=== PATIENT | female | born 1950 | race Caucasian/White ===

== ENCOUNTER 2017-04-11 11:06 | Inpatient (IN) | payer BC, MEDICARE ==
[2017-04-04 14:23] LABS: BASOPHILS 0.7 %; BASOPHILS ABSOLUTE 0.09 10/3/uL (0.0-0.16); EOSINOPHILS 1.4 %; EOSINOPHILS ABSOLUTE 0.18 10/3/uL (0.0-0.53); HEMATOCRIT 40.1 % (36.0-48.0); HEMOGLOBIN 13.5 g/dL (12.0-16.0); IMMATURE GRANULOCYTES 0.2 %; IMMATURE GRANULOCYTES ABSOLUTE 0.03 10/3/uL (0.0-0.11); LYMPHOCYTES 23.7 %; LYMPHOCYTES ABSOLUTE 3.14 10/3/uL (0.67-4.30); MEAN CORPUS HGB CONC 33.7 g/dL (32.0-36.0); MEAN CORPUSCULAR VOLUME 92.2 fL (80-100); MEAN PLATELET VOLUME 10.6 fL (9.2-13.0); MONOCYTES 6.1 %; MONOCYTES ABSOLUTE 0.81 10/3/uL (0.21-1.20); NEUTROPHILS 67.9 %; NEUTROPHILS ABSOLUTE 8.99 10/3/uL (2.02-8.40); RBC DISTRIBUTION WIDTH 14.2 % (12.0-16.0); RED CELL COUNT 4.35 10/6/uL (4.0-5.6); WHITE BLOOD CELLS 13.2 10/3/uL (4.5-10.5)
[2017-04-04 14:24] LABS: MANUAL DIFF NO %; PLATELET COUNT 223 10/3/uL (150-400)
[2017-04-04 14:29] LABS: PROTIME (NOT ORD) 12.7 SEC (12.0-14.5)
[2017-04-04 14:36] LABS: ASCORBIC ACID (UR NOT ORDER) NEG (NEG); BILIRUBIN, URINE NEGATIVE (NEG); KETONE, URINE NEGATIVE (NEG); LEUKOCYTE ESTERASE(NOT OR NEG (NEG); WBC (NOT ORDERED) (RFLEX) 1 (0-5)
[2017-04-04 14:41] LABS: A/G RATIO 1.3 (0.7-1.9); ALBUMIN 3.9 G/DL (3.5-5.0); ALKALINE PHOSPHATASE 66 U/L (45-117); BUN (BLOOD UREA NITROGEN) 20 MG/DL (6-23); CALCIUM, SERUM 8.9 MG/DL (8.5-10.4); CHLORIDE, SERUM 108 MMOL/L (96-112); CO2 (CARBON DIOXIDE) 34 MMOL/L (24-34); GFR AFRICAN AMERICAN 105 ML/MIN (>=60); GFR NON AFRICAN AMERICAN 91 ML/MIN (>=60); GLUCOSE, SERUM 79 MG/DL (60-99); POTASSIUM, SERUM 4.2 MMOL/L (3.5-5.3); SGOT(AST) 20 U/L (5-40); SGPT(ALT) 32 U/L (5-65); SODIUM, SERUM 142 MMOL/L (135-148); TOTAL BILIRUBIN 0.2 MG/DL (0-1.2); TOTAL PROTEIN 6.9 G/DL (6.0-8.5)
--- NOTE | ~2017-04-11 | OP ---
Record Of Operation [facility] [address] [place]. [address] NAME: MITCHELL DE : 52 STATUS : ADM IN PAT#: [id number] AGE: 66 ADM/REG DATE : 04/11/17 MR#: [id number] REPORT SERV DATE: 04/11/17 DICTATED BY: TATE AGEE DATE: 04/11/17 REPORT STATUS : Draft TRANSCRIBED BY: LIZZETTE DATE: 04/11/17 DATE OF PROCEDURE: 04/11/2017 PREOPERATIVE DIAGNOSIS: Severe right hip degenerative joint disease. POSTOPERATIVE DIAGNOSIS: Severe right hip degenerative joint disease. PROCEDURE: Uncemented total hip arthroplasty, Tri-Lock. SIDE: Right. RECORDS OFFICER: ANESTHESIA: See chart. SIZE: See chart. ESTIMATED BLOOD LOSS: About 100 mL. INDICATIONS FOR SURGERY: PROCEDURE: The patient was taken to the operating room and placed supine on the table without incident. Anesthetic was induced per the anesthesiologist. A Chopra catheter was placed by the nurse in the standard sterile technique. The correct side for the procedure was identified by preoperative markings and matched with the consent form. All personnel in the room were in agreement regarding the procedure, patient, and side. The patient was then carefully positioned and carefully padded and prepped and draped in the normal sterile fashion. The patient received prophylactic preoperative antibiotics at the appropriate time. The preoperative x-ray was brought up on the monitor. Again, this was reviewed with the staff in the room. According with the preoperative plan, and angled, an anterolateral incision was made centered over the trochanter extending from proximal posterior to distal anterior. Electrocautery was used to maintain meticulous hemostasis. The IT band was split in line with its fibers. A Charnley retractor was placed over saline moistened laps. A standard anterolateral approach to the hip was carried out dissecting in line with the vastus medialis fibers lifting the inferior 20% of the vastus medialis, proximally the interior 20% of the gluteus medius and gluteus minimus tendons off the anterior capsule. Periosteal elevator was used to elevate soft tissue gently directly off the proximal anterior femoral bone. Appropriate retractors were carefully placed. Complete anterior capsulectomy was performed. The hip was then carefully dislocated with a combination of traction maneuver by the recycling assistant and scooping the ball out of the socket with a Hohmann. A femoral neck osteotomy was marked according to what had been preoperatively planned with a broach as a template. The distance for the femoral neck osteotomy was measured with a ruler. A femoral neck osteotomy was made with an oscillating saw under appropriate retraction. Meticulous hemostasis was again obtained. The leg was then brought up out of the anterior bag and Record Of Operation [facility] [id number] [place]. [address] NAME: MITCHELL DE : 52 STATUS : ADM IN [facility]#: [id number] AGE: 66 ADM/REG DATE : 04/11/17 MR#: [id number] REPORT SERV DATE: 04/11/17 DICTATED BY: TATE AGEE DATE: 04/11/17 REPORT STATUS : Draft TRANSCRIBED BY: LIZZETTE DATE: 04/11/17 positioned with the lower extremity in external rotation and slight flexion. Acetabular retractors were placed carefully palpating to be sure that they were directly on the bone. The acetabular labrum was excised with electrocautery and rongeur. Pulvinar fat was removed with a large curette and rongeur and again meticulous hemostasis was obtained. Sequential reamers were used in the acetabulum to 1 mm. less than the final size which was chosen. This was felt to give excellent interference fit. The acetabular fossa was then copiously irrigated with pulsatile lavage and actual acetabular component was placed and impacted and checked to make sure it was down snug. The overall alignment was checked. The acetabular stitcher operator was then removed. Screws were placed in the standard fashion. A drill, depth gauge and self tapping screw placement taking care not to plunge as the drill holes were carefully placed. A trial liner was then placed and attention directed back to the proximal femur. The leg was placed back into the anterior bag. The proximal femur was prepared using a box chisel following by a T-handled reamer to determine the intramedullary alignment. This was followed by sequential broaches up to the final broach. Once it was seated in the appropriate position, a Calcar reamer was used to plane the proximal femur. Trial reduction was then done with a trial prosthetic ball and neck. A straight edge was used to compare the tip of the trochanter to center of the ball relationship to what had been noted on the preoperative x-ray. Careful reduction was then done of the total hip. Palpation was done to ascertain and compare leg lengths by palpating the nonoperative leg and also by checking soft tissue tension. The stability of the hip was checked in full extension with full external rotation and in full flexion with adduction, flexion and internal rotation. The hip was then re-dislocated with a bone hook. The femoral trial and femoral broach were removed. The acetabulum was then prepared under appropriate retraction by removing the trial liner. A central hole eliminator was placed and tightened. The shell was irrigated out. The actual insert was placed and impacted and then checked to be sure it was down snug with a joker. The leg was again positioned in the bag. The proximal femur exposed, irrigated and the actual thermal prosthesis was taken from the indirect sales representative and impacted. Once it was down, the trunnion was cleansed with a wet and dry lap and the prosthetic thermal head was placed and impacted and checked to be sure it was down snug. The acetabulum was irrigated and reduction was obtained. Again, we checked soft tissue tension, leg length and stability as described above. The hip was closed in a layered fashion with a 5 mm. Mersilene tape placed through a single drill hole in the proximal anterior/superior trochanter reattaching the gluteus medius and minimus fibers. The vastus lateralis, gluteus medius, and gluteus minimus were then closed in a sleeve. Drain was placed between the vastus and the IT band exiting distally anteriorly. The IT band was closed. Subcutaneous closure and skin closure were then obtained. A sterile dressing was applied. The patient was carefully positioned into a supine position and then awakened. The patient was then carefully transferred to the stretcher to be returned to the postoperative care unit without incident. COMPLICATIONS: None. SPECIMENS: Right femoral head. Record Of Operation [address] [place]. [address] NAME: MITCHELL DE : 52 STATUS : ADM IN [facility]#: [id number] AGE: 66 ADM/REG DATE : 04/11/17 MR#: [id number] REPORT SERV DATE: 04/11/17 DICTATED BY: TATE AGEE DATE: 04/11/17 REPORT STATUS : Draft TRANSCRIBED BY: MODStu DATE: 04/11/17 WTB/MODL Chalino Agee M.D. / [id number] CC: Chalino Agee M.D.
[~2017-04-11 11:06] MED LIST: *DENIES; ADVIL PO; CALTRA600D PO; FOSAMAX70 MG PO; NICODERM C21 MG/241 TOP; VITAMIN D1000 UNI1 PO
[2017-04-12 04:30] LABS: INTERNATIONAL NORMAL RATI 1.2 UNITS (-)
[2017-04-12 04:31] LABS: HEMATOCRIT 32.9 % (36.0-48.0)
[2017-04-12 04:39] LABS: BUN (BLOOD UREA NITROGEN) 8 MG/DL (6-23); CALCIUM, SERUM 8.5 MG/DL (8.5-10.4); CHLORIDE, SERUM 108 MMOL/L (96-112); CO2 (CARBON DIOXIDE) 26 MMOL/L (24-34); CREATININE 0.54 MG/DL (0.55-1.02); GFR AFRICAN AMERICAN 115 ML/MIN (>=60); GFR NON AFRICAN AMERICAN 99 ML/MIN (>=60); GLUCOSE, SERUM 108 MG/DL (60-99); POTASSIUM, SERUM 3.8 MMOL/L (3.5-5.3); SODIUM, SERUM 141 MMOL/L (135-148)
[2017-04-12] MEDS ORDERED: ZOFRAN4 PO (10:51)
[2017-04-12] MEDS ORDERED: PCET PO (10:51)
[2017-04-12] MEDS ORDERED: C5 PO (10:51)
== END 2017-04-12 14:48 | disposition home or self-care (01) | DRG 470 ==
LOC: SDC/OF 11:06 → 3JRC 15:51
PROVIDERS: Family Medicine; Specialist
PROC: 0SR902A Replacement of Right Hip Joint with Metal on Polyethylene Synthetic Substitute, Uncemented, Open Approach (ICD-10-PCS; principal; 2017-04-11 13:15)
DX: M16.11 Unilateral primary osteoarthritis, right hip (principal); J44.9 Chronic obstructive pulmonary disease, unspecified; Z79.899 Other long term (current) drug therapy; Z88.1 Allergy status to other antibiotic agents; F17.210 Nicotine dependence, cigarettes, uncomplicated
CPT/HCPCS: 36415; 71020; 72170; 80048; 80053; 81001; 85014; 85018; 85025; 85610; 86850; 86900; 86901; 87641; 88304; 88311; 93005; 97116-GP; 97150-GP; 97161-GP; 97165-GO; A9270-GY; C1713; C1776; J0690; J0735; J1885; J2250; J2270; J2405; J2710; J2795; J3010

== ENCOUNTER 2017-04-14 21:05 | Emergency (ER) | payer BC, MEDICARE ==
[~2017-04-14 21:05] MED LIST changes: +C5 PO; +PCET PO; +ZOFRAN4 PO
[2017-04-14 21:14] LABS: BASOPHILS 0.5 %; BASOPHILS ABSOLUTE 0.05 10/3/uL (0.0-0.16); EOSINOPHILS ABSOLUTE 0.22 10/3/uL (0.0-0.53); ER CBC TAT 0 Hrs 07 Mins; HEMOGLOBIN 9.8 g/dL (12.0-16.0); IMMATURE GRANULOCYTES 0.5 %; IMMATURE GRANULOCYTES ABSOLUTE 0.06 10/3/uL (0.0-0.11); LYMPHOCYTES 22.4 %; LYMPHOCYTES ABSOLUTE 2.46 10/3/uL (0.67-4.30); MEAN CORPUS HGB CONC 33.6 g/dL (32.0-36.0); MEAN CORPUSCULAR VOLUME 92.4 fL (80-100); MEAN PLATELET VOLUME 10.4 fL (9.2-13.0); MONOCYTES 6.5 %; MONOCYTES ABSOLUTE 0.71 10/3/uL (0.21-1.20); NEUTROPHILS 68.1 %; NEUTROPHILS ABSOLUTE 7.47 10/3/uL (2.02-8.40); PLATELET COUNT 202 10/3/uL (150-400); RBC DISTRIBUTION WIDTH 14.4 % (12.0-16.0)
[2017-04-14 21:17] LABS: HEMATOCRIT 29.2 % (36.0-48.0); MANUAL DIFF NO %; RED CELL COUNT 3.16 10/6/uL (4.0-5.6)
[2017-04-14 21:19] LABS: ASCORBIC ACID (UR NOT ORDER) NEG (NEG); BILIRUBIN, URINE NEGATIVE (NEG); ER URINALYSIS TAT 0 Hrs 12 Mins; KETONE, URINE NEGATIVE (NEG); LEUKOCYTE ESTERASE(NOT OR MOD (NEG); NITRITE (URINE) NEG (NEG); WBC (NOT ORDERED) (RFLEX) 24 (0-5)
[2017-04-14 21:30] LABS: BUN (BLOOD UREA NITROGEN) 8 MG/DL (6-23); CALCIUM, SERUM 8.1 MG/DL (8.5-10.4); CHLORIDE, SERUM 105 MMOL/L (96-112); CREATININE 0.62 MG/DL (0.55-1.02); GFR AFRICAN AMERICAN 110 ML/MIN (>=60); GFR NON AFRICAN AMERICAN 95 ML/MIN (>=60); GLUCOSE, SERUM 108 MG/DL (60-99); SGOT(AST) 33 U/L (5-40); SGPT(ALT) 28 U/L (5-65); SODIUM, SERUM 142 MMOL/L (135-148); TOTAL BILIRUBIN 0.2 MG/DL (0-1.2); TOTAL PROTEIN 6.4 G/DL (6.0-8.5)
[2017-04-14 21:32] LABS: A/G RATIO 0.7 (0.7-1.9); ALBUMIN 2.6 G/DL (3.5-5.0); ALKALINE PHOSPHATASE 141 U/L (45-117); CO2 (CARBON DIOXIDE) 31 MMOL/L (24-34); GLOBULIN 3.8 G/DL (2.5-4.1)
[2017-04-14 22:00] LABS: PROCALCITONIN 0.08 ng/mL (<0.5)
== END 2017-04-14 22:51 | disposition home or self-care (01) ==
LOC: ER 21:05
PROVIDERS: Emergency Medicine
DX: N39.0 Urinary tract infection, site not specified (principal); Z87.891 Personal history of nicotine dependence; Z88.1 Allergy status to other antibiotic agents; Z88.5 Allergy status to narcotic agent; Z79.01 Long term (current) use of anticoagulants; Z79.899 Other long term (current) drug therapy
CPT/HCPCS: 71020; 80053; 81001; 83605; 84145; 85025; 87040; 87086; 99284; A9270-GY